=== PATIENT | female | born 1955 | race Caucasian/White ===

== ENCOUNTER 2017-09-21 19:01 | Inpatient (IN) | payer OTHER ==
[~2017-09-21] VITALS: Ht 160 cm; Wt 68.0 kg
[2017-09-24] MEDS ORDERED: NAPR500T14 PO (14:47)
[2017-09-24] MEDS ORDERED: DOXYCYCLINE HY100 M2 PO (14:47)
== END 2017-09-24 16:24 | disposition home or self-care (01) | DRG 300 ==
LOC: ER 19:01 → SEC-K 20:55 → MEDJ 20:55
PROC: B34HZZZ Ultrasonography of Right Upper Extremity Arteries (ICD-10-PCS; principal; 2017-09-21)
PROC: B54MZZZ Ultrasonography of Right Upper Extremity Veins (ICD-10-PCS; 2017-09-21)
DX: I80.8 Phlebitis and thrombophlebitis of other sites (principal); L03.113 Cellulitis of right upper limb; T80.1XXA Vascular complications following infusion, transfusion and therapeutic injection, initial encounter; Y84.8 Other medical procedures as the cause of abnormal reaction of the patient, or of later complication, without mention of misadventure at the time of the procedure; Y92.238 Other place in hospital as the place of occurrence of the external cause

== ENCOUNTER 2018-12-09 14:52 | Emergency (ER) | payer OTHER ==
[~2018-12-09] VITALS: Ht 160 cm; Wt 68.0 kg
[~2018-12-09 14:52] MED LIST: DOXYCYCLINE HY100 M2 PO; NAPR500T14 PO
== END 2018-12-09 22:31 | disposition home or self-care (01) ==
LOC: ER 14:52
DX: K52.9 Noninfective gastroenteritis and colitis, unspecified (principal); E86.0 Dehydration

== ENCOUNTER 2022-03-24 06:15 | Emergency (ER) | payer OTHER ==
[~2022-03-24] VITALS: Ht 160 cm; Wt 59.0 kg
[2022-03-24] MEDS ORDERED: JANUVIA100 MG PO (06:23)
[2022-03-24] MEDS ORDERED: GABAPENTIN300 M2 PO (06:24)
[2022-03-24] MEDS ORDERED: ZEPOSIA0.92 MG PO (06:24)
== END 2022-03-24 11:26 | disposition home or self-care (01) ==
LOC: ER 06:15
DX: M54.59 Other low back pain (principal); R10.9 Unspecified abdominal pain; M54.9 Dorsalgia, unspecified; E11.9 Type 2 diabetes mellitus without complications; Z79.84 Long term (current) use of oral hypoglycemic drugs; Z88.0 Allergy status to penicillin